=== PATIENT | female | born 1975 | race Caucasian/White ===

== ENCOUNTER 2016-12-21 07:32 | Emergency (ER) | payer OTHER ==
[~2016-12-21] VITALS: Ht 160 cm; Wt 63.6 kg
[~2016-12-21 07:32] MED LIST: CA C1TAB88 PO; CHOL10008 PO; FLUO10CA30 PO; FLUT16SP NS; HYDR-4003 PO; METF-777 PO; METH20CP PO; NICO1PAT5 TRANSDERM; [UNRECOGNIZED DRUG - OTHER]
[2016-12-21 07:36] VITALS: BP 124/69; PULSE 81; RESP 14; O2SAT 99
--- NOTE | 2016-12-21 07:52 | ED.REPORT ---
HPI-Back Pain 40 and Over Date of Service Dec 21, 2016 ED Provider: Blossom Knutson MD Patient is a 41 year old female with a hx of TBI, CVA, and DM who presents to the ED complaining of worsening left, low back pain s/p lifting a heavy box 4 days ago. Associated symptoms include problems walking and numbness into the L leg. She denies incontinence, weakness, tingling, or any other symptoms. She has tried Ibuprofen, Aspirin, Tylenol, heat, ice, and pressure to relieve her pain without relief. She last had pain medications between [id number] this morning. Nursing Notes Stated Complaint: CANT WALK, EXTREME PAIN Chief Complaint: Back Pain or Injury Nursing Notes Reviewed: Yes Allergies: Coded Allergies: Arriola (Verified Allergy, Intermediate, rash to cherries, 12/08/09) Penicillins (Verified Allergy, Unknown, 11/26/13) Sulfa (Sulfonamide Antibiotics) (Verified Allergy, Unknown, rash, 01/05/16) morphine (Verified Adverse Reaction, Unknown, DECREASED RESPIRATIONS, 12/21) Scheduled ([calcio lori]) 500 MG DAILY Ca Carbonate/Vitamin D3/Vit K (Viactiv Soft Chew Tablet) 1 Each Tab.chew 2 EACH PO DAILY Cholecalciferol (Vitamin D3) (Vitamin D3) 1,000 Unit Tab.chew 1,000 UNIT PO DAILY Fluoxetine (Prozac) 10 Mg Capsule 10 MG PO DAILY Metformin HCl (Metformin HCl ER) 500 Mg [id number] 500 MG PO DAILY Methylphenidate ER (Ritalin LA) 20 Mg Capsule 20 MG PO DAILY Nicotine 14 mg/24 hr Patch (Nicotine 14 mg/24 hr Patch) 1 Each Patch.td24 1 PATCH TRANSDERM DAILY Scheduled PRN Fluticasone Propionate (Fluticasone Propionate Nasal) 16 Gm [place].susp 2 SPRAY NS BID PRN PRN seasonal allergies Hydrocodone-Acetaminophen 5-325 mg (Hydrocodone-Acetaminophen 5-325 mg) 1 Each Tablet 1 TABLET PO Q6H PRN PRN For Pain General Time Seen by MD: 07:50 Chief Complaint Back pain Hx Obtained From: Patient Arrived By: Wheelchair Sudden in Onset?: Yes Onset Occurred: 4 days ago Symptom Duration: Since onset Risk Factors )( AAA Risk Stratification Abdominal Aortic Aneurysm Risk: SmokingNo Hypertension Risk factors reviewed )( TAD Risk Stratification No Hypertension, No Risk factors reviewed Past Medical History Past Medical History CVA TBI DM Seizures Past Surgical History R knee surg Reports: Tonsillectomy Smoking History Current Every Day Smoker Social History Alcohol Use: Denies alcohol use Drug Use: THC Other Social History: Good social support, Ambulatory Status Wheelchair Review of Systems Review of Systems Note: -tingling Female: Denies: Incontinence Musculoskeletal: Reports: Back pain Neurologic: Reports: Numbness, Problem walking, Denies: Bladder dysfunction, Bowel dysfunction, Weakness Complete sys rev & neg: except as marked. Physical Exam Initial Vital Signs Vital Signs (First) Date Time Temp Pulse Resp B/P Pulse Ox O2 Delivery O2 Flow Rate FiO2 12/21/16 07:36 36.5 81 14 124/69 99 Room Air Initial VS: Reviewed, Vital signs normal Head / Eyes: Atraumatic, Normocephalic Neck: Full range of motion Skin: Warm, Dry Psychiatric: Mood/affect normal, Behavior normal, Normal thought content General/Constitutional: Awake, Alert Distress / Hydration: Positive: Distress moderate Respiratory / Chest: Breath sounds NL, Breath sounds = bilat, No respiratory distress Cardiovascular: Heart rate NL, Regular rhythm, Heart sounds NL Abdomen: Atraumatic, Soft, Non-tender Back: Full range of motion, No midline vertebral tend tenderness along L3,4,5 along left paraspinus radiating to buttock no muscle spasm no point tenderness along spine Neurologic: Oriented X3, Speech NL decreased sensation in L lateral thigh nL reflexes to ankle jerks and patellas Re-Eval/Medical Decision Re-Evaluation/Progress #1: Time of Eval: 08:44 Re-Evaluation/Progress Note: Rechecked patient. She is improving. Re-Evaluation/Progress #2: Time of Eval: 09:34 Re-Evaluation/Progress Note: Rechecked patient who is feeling much better. Discussed plan for discharge. Patient understands and agrees with plan. All questions addressed at this time. Counseled Regarding: Diagnosis, Need for follow-up, When/why to return to ED Discharge & Departure Impression: Primary Impression: Low back strain Encounter type: initial encounter Qualified Code: S39.012A - Strain of muscle, fascia and tendon of lower back, initial encounter Additional Impression: Radicular low back pain Disposition: Home Discharge Condition All VS Reviewed: Yes Condition: Improved Patient Instructions: Low Back Strain (ED), Lumbar Radiculopathy (ED) Additional Instructions: I'm so sorry you are hurting so much today. In the ER, you were given a shot of Toradol a single Percocet and 10 mg of Decadron. This has helped relieve your pain somewhat you are still having some numbness however you are not experiencing any weakness. There is no suggestion on your exam or with your description today of any severe or life-threatening problems like broken bones, infection or abscesses I fully expect that your symptoms will improve over the next week, although you may still have some back pain for a few weeks to follow. For the inflammation that is causing the pain I would like you to take 10 mg of Decadron for 3 days. I have given you a prescription for 10 mg on December 22 and By December 24 if you are still having pain issues 600 mg of ibuprofen every 6 hours Number severe pain he can use 1 Percocet (this is Tylenol plus narcotic) every 6 hours in the first 2-3 days. Typically narcotics are not going to be effective after the first few days of an acute episode If you are continuing to get worse please follow-up with Mr. Park Referrals: Adeel Park (PCP) Fransisco Attestation Portions of this note were transcribed by [facility]. I, Dr. Knutson personally performed the history, physical exam and medical decision-making; I reviewed and confirmed the accuracy of the information in the transcribed note. Signed: Fransisco Vaughn, 12/21/2016 copies to: Adeel Park Shawna L MD Dec 21, 2016 07:52 [facility] Dec 21, 2016 07:59
[2016-12-21] MEDS ORDERED: oxyCODONE-Acetamin 5-325 mg Tablet PO ONE (08:05)
[2016-12-21 10:00] VITALS: BP 110/72; PULSE 79; RESP 15; O2SAT 97
== END 2016-12-21 10:02 | disposition home or self-care (01) ==
LOC: SED 07:32
DX: S39.012A Strain of muscle, fascia and tendon of lower back, initial encounter (principal); X50.0XXA Overexertion from strenuous movement or load, initial encounter; Y93.89 Activity, other specified; Y92.89 Other specified places as the place of occurrence of the external cause; Y99.0 Civilian activity done for income or pay; E11.9 Type 2 diabetes mellitus without complications; F17.200 Nicotine dependence, unspecified, uncomplicated; Z88.0 Allergy status to penicillin; Z86.73 Personal history of transient ischemic attack (TIA), and cerebral infarction without residual deficits; Z87.820 Personal history of traumatic brain injury; Z88.2 Allergy status to sulfonamides; Z88.5 Allergy status to narcotic agent; Z79.84 Long term (current) use of oral hypoglycemic drugs
CPT/HCPCS: 96372; 99283; J1885

== ENCOUNTER 2017-01-03 06:14 | Emergency (ER) | payer OTHER ==
[~2017-01-03] VITALS: Ht 160 cm; Wt 63.6 kg
[2017-01-03 06:16] VITALS: BP 129/72; PULSE 104; RESP 16; O2SAT 98
--- NOTE | 2017-01-03 06:33 | ED.REPORT ---
HPI-Extremity Problem Lower Date of Service Jan 03, 2017 ED Provider: Chapincito Roberts DO Patient is a 41 year old female with a hx of DM, TBI, and CVAx2 with residual R sided weakness who presents to the ED complaining of L knee pain s/p a glf onto hardwood yesterday evening. Her pain radiates up to her hip and midway down her calf. Associated symptoms include trouble walking secondary to pain, L knee swelling, nausea, vomiting, and back pain due to an injury 2 weeks ago (for which she was seen in the department for). She denies new numbness, tingling, abdominal pain, or any other symptoms. Patient take Gabapentin and metformin daily. Nursing Notes Stated Complaint: LT KNEE PAIN Chief Complaint: Extremity Trauma Nursing Notes Reviewed: Yes Allergies: Coded Allergies: Arriola (Verified Allergy, Intermediate, rash to cherries, 12/08/09) Penicillins (Verified Allergy, Unknown, 11/26/13) Sulfa (Sulfonamide Antibiotics) (Verified Allergy, Unknown, rash, 01/05/16) morphine (Verified Adverse Reaction, Unknown, DECREASED RESPIRATIONS, 12/21) Scheduled ([calcio lori]) 500 MG DAILY Ca Carbonate/Vitamin D3/Vit K (Viactiv Soft Chew Tablet) 1 Each Tab.chew 2 EACH PO DAILY Cholecalciferol (Vitamin D3) (Vitamin D3) 1,000 Unit Tab.chew 1,000 UNIT PO DAILY Fluoxetine (Prozac) 10 Mg Capsule 10 MG PO DAILY Metformin HCl (Metformin HCl ER) 500 Mg [id number] 500 MG PO DAILY Methylphenidate ER (Ritalin LA) 20 Mg Capsule 20 MG PO DAILY Nicotine 14 mg/24 hr Patch (Nicotine 14 mg/24 hr Patch) 1 Each Patch.td24 1 PATCH TRANSDERM DAILY Scheduled PRN Fluticasone Propionate (Fluticasone Propionate Nasal) 16 Gm [place].susp 2 SPRAY NS BID PRN PRN seasonal allergies Hydrocodone-Acetaminophen 5-325 mg (Hydrocodone-Acetaminophen 5-325 mg) 1 Each Tablet 1 TABLET PO Q6H PRN PRN For Pain Hydrocodone-Acetaminophen 5-325 mg (Hydrocodone-Acetaminophen 5-325 mg) 1 Each Tablet 1 TABLET PO Q4H PRN PRN For Pain Ibuprofen (Ibuprofen) 800 Mg Tablet 800 MG PO TID PRN PRN For Pain Ondansetron ODT (Zofran ODT) 4 Mg Tablet 4 MG PO Q4H PRN PRN For Nausea General Time Seen by MD: 06:24 Chief Complaint Knee injury left Hx Obtained From: Patient Arrived By: Wheelchair Onset Occurred: Yesterday Symptom Duration: Since onset Caused by: Fall on ground Recent Healthcare: Recent doctor visit Past Medical History Past Medical History CVA x2 TBI DM Seizures Deaf in one ear Dysphagia Anxiety Reports: Depression Past Surgical History R knee replacement Reports: Tonsillectomy Smoking History Current Some Day Smoker Social History Alcohol Use: Denies alcohol use Drug Use: THC Other Social History: Good social support, Ambulatory Status Wheelchair Review of Systems Review of Systems Note: -tingling Musculoskeletal: Reports: Back pain, Extremity pain, Joint pain, Joint swelling Neurologic: Reports: Problem walking, Denies: Numbness Complete sys rev & neg: except as marked. GI: Reports: Nausea, Vomiting, Denies: Abdominal pain Physical Exam Initial Vital Signs Vital Signs (First) Date Time Temp Pulse Resp B/P Pulse Ox O2 Delivery O2 Flow Rate FiO2 01/03/17 06:16 37.2 104 16 129/72 98 Room Air Initial VS: Reviewed, Vital signs abnormal Head / Eyes: Atraumatic, Normocephalic Neck: Supple, Non-tender, Full range of motion Respiratory: Breath sounds normal, Clear to auscultation, No respiratory distress Abdomen / GI: Soft, Non-tender, No guarding, No rebound Skin: Warm, Dry Neurologic: Alert, Oriented, Nonfocal Psychiatric: Mood/affect normal, Behavior normal, Normal thought content Lower Extremity / Pelvis / MS: No swelling, No deformity, Pelvis stable tenderness to the anterior tibia and patella as well as greater trochanter and L hip over ASIS. No ecchymosis or significant swelling Ankle / Foot: No deformity, Neurologic intact, Vascular intact Back: Atraumatic Additional Notes: Mild tenderness to lower back Interpretation & Diagnostics X-Ray Interpretation Xray Interpretation: No fracture X-Ray Ordered: Knee left Interpretation / Wet Read by: Wet read ED physician Xray Interpretation: No fracture X-Ray Ordered: Pelvis Interpretation / Wet Read by: Wet read ED physician Xray Interpretation: No fracture Study Performed: Lumbar spine Interpretation / Wet Read by: Wet read ED physician Re-Eval/Medical Decision Med Decision/Clinical Course No fractures identified by x-ray today. No neurologic deficits. Patient advised that she will need follow-up and recheck to make sure that she is improving. She was given return precautions Re-Evaluation/Progress : Time of Eval: 07:46 Re-Evaluation/Progress Note: Rechecked patient. Her pain is reduced from a 10/10 to a 7/10. Discussed plan for discharge. Patient understands and agrees with plan. All questions addressed at this time. Counseled Regarding: Diagnosis, Need for follow-up, When/why to return to ED Discharge & Departure Impression: Primary Impression: Knee contusion Encounter type: initial encounter Laterality: left Qualified Code: S80.02XA - Contusion of left knee, initial encounter Additional Impressions: Low back pain with sciatica Chronicity: unspecified Back pain laterality: left Sciatica laterality: sciatica of left side Qualified Code: M54.42 - Lumbago with sciatica, left side Contusion, hip Encounter type: initial encounter Laterality: left Qualified Code: S70.02XA - Contusion of left hip, initial encounter Fall from ground level Disposition: Home Discharge Condition All VS Reviewed: Yes Condition: Stable Patient Instructions: Hip Contusion (ED), Sciatica (ED) Additional Instructions: Thank you for coming to the emergency department. Your X-rays and examination are reassuring. We did not find a fracture at this time. Use iced (20min at a time, 3-4 times a day), rest, Ibuprofen (up to 800mg no more than every 8 hours), and your gabapentin as prescribed. For extreme pain you may take Hydrocodone as prescribed. Take Zofran as prescribed for you nausea. Follow up with your primary doctor next week for re-evaluation. Return to the emergency department for new numbness, weakness, tingling, or any other new or concerning symptoms. Referrals: Adeel Park (PCP) Anita Hirsch Attestation Portions of this note were transcribed by [facility]. I, Dr. Roberts personally performed the history, physical exam and medical decision-making; I reviewed and confirmed the accuracy of the information in the transcribed note. Signed by: Fransisco Vaughn, 01/03/17 copies to: Anita Hirsch Gary R DO Jan 03, 2017 06:33 [facility] Jan 03, 2017 06:40
[2017-01-03] MEDS ORDERED: Ondansetron 8 mg ODT Tablet PO ONE (06:40)
[2017-01-03] MEDS ORDERED: HYDR-4003 PO (07:52)
[2017-01-03] MEDS ORDERED: ONDA4TAB9 PO (07:52)
[2017-01-03] MEDS ORDERED: IBUP800T28 PO (07:52)
[2017-01-03] MEDS ORDERED: HYDROcodone-APAP 5-325 mg Tablet PO ONE (08:40)
--- NOTE | 2017-01-03 08:49 | DRSVH ---
PROCEDURE: X-RAY LUMBAR SPINE, 2 OR 3 VIEW INDICATIONS: fall, low back pain TECHNIQUE: 3 views of the lumbar spine were acquired. COMPARISON: None. FINDINGS: Bones: 5 [id number] vertebrae are present. There is normal bony alignment. No vertebral body c ompression fractures. No suspicious bony lesions. Soft tissues: Overlying bowel gas pattern is normal. No suspicious soft tissue calcifications. IMPRESSION: No displaced fracture seen. If there is continued pain, followup exam or additional trever ging such as MRI or CT could be performed for further assessment. Dictated by: Rigoberto Hinson [facility] Interpreted: Mona Kim MD on 01/03/2017 at 8:47 Transcribed by: YAMILKA on 01/03/2017 at 8:48 Approved by: Mona Kim M.D. on 01/03/2017 at 9:21
--- NOTE | 2017-01-03 09:31 | DRSVH ---
PROCEDURE: X-RAY PELVIS W/LAT HIP (LT) ([id number]) INDICATIONS: fall, L hip pain TECHNIQUE: AP pelvis with lateral view(s) of the left hip(s). COMPARISON: None. FINDINGS: Bones: No fractures or dislocations. Pelvic ring appears intact. No suspicious bony lesions. Soft tissues: The visualized bowel gas pattern is normal. No suspicious soft tissue calcifications. IMPRESSION: No displaced fracture seen. If there is continued pain, followup exam or additional trever ging such as MRI or CT could be performed for further assessment. Dictated by: Rigoberto Hinson [facility] Interpreted: Mona Kim MD on 01/03/2017 at 8:50 Approved by: Mona Kim M.D. on 01/03/2017 at 9:19
--- NOTE | 2017-01-03 09:36 | DRSVH ---
PROCEDURE: X-RAY LEFT KNEE, THREE VIEWS ([id number]) INDICATIONS: FALL, LEFT KNEE PAIN. TECHNIQUE: Three views of the knee were acquired. COMPARISON: None. FINDINGS: Bones: No fractures or dislocations. No suspicious bony lesions. Soft tissues: No joint effusion. No suspicious soft tissue calcifications. IMPRESSION: 1. No displaced fracture seen. If there is continued pain, followup exam or additional imaging such as MRI or CT could be performed for further assessment. Dictated by: Rigoberto BUCK Interpreted: Mona Kim MD on 01/03/2017 at 8:47 Transcribed by: SYDNEE on 01/03/2017 at 12:35 Approved by: Mona Kim M.D. on 01/03/2017 at 14:30
[2017-01-03 09:37] VITALS: BP 119/76; PULSE 89; RESP 16; O2SAT 99
== END 2017-01-03 10:22 | disposition home or self-care (01) ==
LOC: SED 06:14
DX: S80.02XA Contusion of left knee, initial encounter (principal); M54.42 Lumbago with sciatica, left side; S70.02XA Contusion of left hip, initial encounter; W18.39XA Other fall on same level, initial encounter; Y93.89 Activity, other specified; Y92.9 Unspecified place or not applicable; Y99.8 Other external cause status; E11.9 Type 2 diabetes mellitus without complications; Z86.73 Personal history of transient ischemic attack (TIA), and cerebral infarction without residual deficits; F17.200 Nicotine dependence, unspecified, uncomplicated; Z99.3 Dependence on wheelchair; Z88.2 Allergy status to sulfonamides; Z88.0 Allergy status to penicillin; Z88.5 Allergy status to narcotic agent; Z91.018 Allergy to other foods
CPT/HCPCS: 72100; 73501; 73562; 96372; 99284; J1885